=== PATIENT | female | born 1945 | race Caucasian/White ===

== ENCOUNTER 2020-03-25 12:18 | Outpatient (CLI) | payer MEDICARE, SELFPAY ==
--- NOTE | ~2020-03-25 | DEXA_ITS ---
BMD(1) Young-Adult(2) Age-Matched(3) Region (g/cm2) T-score Z-score WHO Classification L1 1.122 -0.2 1.0 Normal L2 1.379 1.4 2.5 Normal L3 1.597 3.0 4.2 Normal L4 1.193 -0.2 0.9 Normal L1-L4 1.312 0.9 2.1 Normal Trend: L1-L4 Change vs Change vs Measured Age BMD(1) Baseline Previous Date (years) (g/cm2) (%) (%) 03/25/2020 [age] 1.312 baseline - 1 - Statistically 68% of repeat scans fall within 1SD (+- 0.010 g/cm2 for AP Spine L1-L4) 2 - [place] (Combined [employer]ANES (ages 20-30) / [employer] (ages 20-40)) AP Spine Reference Population (v112) 3 - Matched for Age, Weight (females 25-100 kg), Ethnic 11 - World Health Organization - Definition of Osteoporosis and Osteopenia for Women: Normal = T-score at or above -1.0 SD; Osteopenia = T-score between -1.0 and -2.5 SD; Osteoporosis = T-score at or below -2.5 SD; (WHO definitions only apply when a young healthy Women reference database is used to determine T-scores.) Printed: 03/25/2020 12:58:52 PM (13.60)76:3.00:50.00:12.0 0.00:9.84 0.60x1.05 25.4:%Fat=38.7% 0.00:0.00 0.00:0.00 Filename: [id number] Scan Mode: Standard;OneScan 37.0 [employer] [id number] BMD(1) Young-Adult(2,7) Age-Matched(3) Region (g/cm2) T-score Z-score WHO Classification Neck Left 0.846 -1.4 0.2 Osteopenia Right 0.830 -1.5 0.1 Osteopenia Mean 0.838 -1.4 0.1 Osteopenia Difference 0.016 0.1 0.1 - Total Left 0.924 -0.7 0.7 Normal Right 0.842 -1.3 0.0 Osteopenia Mean 0.883 -1.0 0.4 Normal Difference 0.082 0.7 0.7 - Hip Spicer Length Comparison (mm) (Right = 115.3 mm) (Mean = 108.0 mm) (Left = 116.7 mm) Trend: Total Mean Change vs Change vs Measured Age BMD(1) Baseline Previous Date (years) (g/cm2) (%) (%) 03/25/2020 75.1 0.883 baseline - 1 - Statistically 68% of repeat scans fall within 1SD (+- 0.010 g/cm2 for DualFemur Total) 2 - [place] (Combined [employer]ANES (ages 20-30) / [employer] (ages 20-40)) Femur Reference Population (v112) 3 - Matched for Age, Weight (females 25-100 kg), Ethnic 7 - [employer]em[employer] Total T-score difference is 0.7. Asymmetry is Mild. 11 - World Health Organization - Definition of Osteoporosis and Osteopenia for Women: Normal = T-score at or above -1.0 SD; Osteopenia = T-score between -1.0 and -2.5 SD; Osteoporosis = T-score at or below -2.5 SD; (WHO definitions only apply when a young healthy Women reference database is used to determine T-scores.) Printed: 03/25/2020 12:58:53 PM (13.60); Filename: [id number]; Right Femur; 19.8:%Fat=32.2%; Neck Angle (deg)= 70; Scan Mode: Standard 37.0 uGy; Left Femur; 19.5:%Fat=38.5%; Neck Angle (deg)= 66; Scan Mode: Standard 37.0 uGy [email or web address] [id number] Dear Kody Mcgrath, Your patient Alicia Villanueva completed a BMD test on 03/25/2020 using the [email or web address] DXA System (analysis version: 13.60) manufactured by [employer]. The following summarizes the results of our evaluation. PATIENT BIOGRAPHICAL: Name: Alicia Villanueva Date: 1945 Height: 66.0 in. Gender: Female Exam Date: 03/25/2020 Weight: 185.0 lbs
== END 2020-03-25 12:19 | disposition home or self-care (01) ==
LOC: CHSIMG 12:20
PROVIDERS: PCP Family Medicine; Visit Provider Family Medicine
DX: M85.80 Other specified disorders of bone density and structure, unspecified site (principal); Z78.0 Asymptomatic menopausal state
CPT/HCPCS: 77080

== ENCOUNTER 2024-03-10 01:41 | Day surgery (SDC) | payer MEDICARE, SELFPAY ==
[2024-02-25 12:51] VITALS: BMI 29.5
[2024-03-10 09:37] VITALS: BP 149/78; PULSE 78; RESP 16; TEMP 36.1; O2SAT 97
[2024-03-10] MEDS: LACTATED RINGERS 1,000 ML 150 ML IV CONT (09:45)
--- NOTE | 2024-03-10 09:52 | WPDANESEPPF ---
Anes - Initial Pre Proc Eval Procedure: Operation Date: 03/10/24 13:30 Proposed Procedures p Colonoscopy - Thomas Pineda MD Date/Time: 03/10/24 09:52 Surgeon: Thomas Pineda MD Pre Op Diagnosis: Other fecal abnormalities Patient Data Age: 79 Gender: F Height: 1.68 m Weight: 81.4 kg Last Vital Signs Temp 96.9 F L 03/10/24 09:37 Pulse 78 03/10/24 09:37 Resp 16 03/10/24 09:37 BP 149/78 H 03/10/24 09:37 Pulse Ox 97 03/10/24 09:37 O2 Del Method Room Air 03/10/24 09:37 Allergies Allergy/AdvReac Type Severity Reaction Status Date / Time No Known Allergies Allergy Verified 03/10/24 09:34 Home Medications Medication Instructions Recorded Confirmed Type acetaminophen 650 mg/20.3 mL oral 650 mg PO Q6H PRN Headache 03/29/23 03/10/24 History solution atorvastatin 80 mg tablet 80 mg PO DAILY 03/29/23 03/10/24 History cholecalciferol (vitamin D3) 50 50 mcg PO DAILY 03/29/23 03/10/24 History mcg (2,000 unit) capsule ergocalciferol (vitamin D2) 1,250 1,250 mcg PO MONTHLY 03/29/23 03/10/24 History mcg (50,000 unit) capsule glucosamine 750 [id number] 1 tablet PO BID 03/29/23 03/10/24 History no1 644 mg-C 30 mg-chito 1 mg tablet (Osteo Bi-Flex Triple Strength) mecobalamin (vitamin B12) 1,000 1,000 mcg sublingual DAILY 03/29/23 03/10/24 History mcg disintegrating tablet,sublingual multivitamin-iron (hematinic) 1 tablet PO DAILY 03/29/23 03/10/24 History ramipril 10 mg capsule 10 mg PO DAILY 03/29/23 03/10/24 History cyclosporine 0.05 % eye drops 1 drp EACH EYE DAILY 02/25/24 03/10/24 History (Restasis MultiDose) Patient hx anesthesia problems: none Family hx anesthesia problems: none Results Review: All pre-operative results and documents have been reviewed as part of the pre-operative evaluation. [facility] Past Medical History Medical History (Updated 03/29/23 @ 10:44 by TOSHIA Lockett) Hyperlipidemia Hypertension Positive colorectal cancer screening using Cologuard test Family History Family History (Updated 03/29/23 @ 10:23 by Renee Felipe MA) Mother Heart disease Cerebrovascular accident Social History Social History (Updated 03/29/23 @ 10:25 by Renee Felipe MA) Smoking packs per day: 1 Smoking cigarettes per day: 20.0 Years smoked: 30 Smoking pack-years: 30.00 Smoking status: Former smoker Tobacco type: cigarettes Second hand tobacco smoke exposure: No Alcohol intake: never Substance use: never Substance use type: does not use Living arrangements: with family Spiritual care concerns: No Anes - Eval Final PreProcedure Day of Procedure 03/10/24 09:52 Patient weight: normal Heart: regular rate and rhythm Lungs: clear to auscultation Airway: Mallampati scale class II Neurological: alert and oriented Last oral intake: >/= 8 hours ASA classification: II Emergent: no Anesthetic plan: proceed Anesthesia type and monitoring: general GIVS and standard monitoring Results Review: All pre-operative results and documents have been reviewed as part of the pre-operative evaluation. Informed Consent: The patient's anesthetic plan and its attendant risks and benefits were discussed with the patient/family/POA. Questions were solicited and answers provided to the satisfaction of the patient/family/POA.
--- NOTE | 2024-03-10 10:02 | PM.HPGS ---
History of Present Illness History of Present Illness Consent: Risks, benefits, and alternatives have been discussed and questions answered. Patient agrees to proceed with procedure. Chief complaint: Other fecal abnormalities Narrative: Alicia Villanueva is a 79 year old female here for first colonoscopy, had + cologuard Review of Systems Review of Systems: All systems reviewed & are unremarkable except as noted in HPI and below PMFSH Past Medical History Medical History (Updated 03/29/23 @ 10:44 by TOSHIA Lockett) Hyperlipidemia Hypertension Positive colorectal cancer screening using Cologuard test Family History Family History (Updated 03/29/23 @ 10:23 by Renee Felipe MA) Mother Heart disease Cerebrovascular accident Social History Social History (Updated 03/29/23 @ 10:25 by Renee Felipe MA) Smoking packs per day: 1 Smoking cigarettes per day: 20.0 Years smoked: 30 Smoking pack-years: 30.00 Smoking status: Former smoker Tobacco type: cigarettes Second hand tobacco smoke exposure: No Alcohol intake: never Substance use: never Substance use type: does not use Living arrangements: with family Spiritual care concerns: No Meds Home Medications and Allergies Home Medications Medication Instructions Recorded Confirmed Type acetaminophen 650 mg/20.3 mL oral 650 mg PO Q6H PRN Headache 03/29/23 03/10/24 History solution atorvastatin 80 mg tablet 80 mg PO DAILY 03/29/23 03/10/24 History cholecalciferol (vitamin D3) 50 50 mcg PO DAILY 03/29/23 03/10/24 History mcg (2,000 unit) capsule ergocalciferol (vitamin D2) 1,250 1,250 mcg PO MONTHLY 03/29/23 03/10/24 History mcg (50,000 unit) capsule glucosamine 750 [id number] 1 tablet PO BID 03/29/23 03/10/24 History no1 644 mg-C 30 mg-chito 1 mg tablet (Osteo Bi-Flex Triple Strength) mecobalamin (vitamin B12) 1,000 1,000 mcg sublingual DAILY 03/29/23 03/10/24 History mcg disintegrating tablet,sublingual multivitamin-iron (hematinic) 1 tablet PO DAILY 03/29/23 03/10/24 History ramipril 10 mg capsule 10 mg PO DAILY 03/29/23 03/10/24 History cyclosporine 0.05 % eye drops 1 drp EACH EYE DAILY 02/25/24 03/10/24 History (Restasis MultiDose) Allergies Allergy/AdvReac Type Severity Reaction Status Date / Time No Known Allergies Allergy Verified 03/10/24 09:34 Vital Signs Vital Signs - 24 hr 03/10/24 09:37 Temperature 96.9 F L Pulse Rate 78 Respiratory Rate 16 Blood Pressure 149/78 H Pulse Oximetry 97 Oxygen Delivery Room Air Exam Const: General: comfortable and no acute distress HENMT: Face/Nose/Sinus: Normal nares present Eyes: General: appearance normal, both eyes and all related structures Neck: Neck: no JVD Resp: Auscultation: clear to auscultation bilaterally Cardio: Rate: regular rate Rhythm: regular rhythm GI: Inspection: non-distended GI Palp: Yes Soft to palpation Skin: General skin exam: normal color Neuro: General: gait normal Speech: normal speech Extrem: General: normal to inspection Psych: Mental Status: mental status grossly normal Assessment and Plan Assessment and plan (1) Positive colorectal cancer screening using Cologuard test: Code(s): R19.5 - Other fecal abnormalities Status: Acute Assessment and Plan: colonoscopy
[2024-03-10 10:21] VITALS: BP 129/70; PULSE 67; RESP 23; O2SAT 100
[2024-03-10 10:31] VITALS: BP 153/79; PULSE 71; RESP 22; O2SAT 99
[2024-03-10 10:41] VITALS: BP 158/94; PULSE 71; RESP 24; O2SAT 96
== END 2024-03-10 10:53 | disposition home or self-care (01) ==
PROVIDERS: PCP Family Medicine; Visit Provider Internal Medicine Gastroenterology
PROC: 0DJD8ZZ Inspection of Lower Intestinal Tract, Via Natural or Artificial Opening Endoscopic (ICD-10-PCS; CPT 45378; principal; 2024-03-10 13:30)
DX: D12.3 Benign neoplasm of transverse colon (principal); D12.5 Benign neoplasm of sigmoid colon; K64.8 Other hemorrhoids; K57.30 Diverticulosis of large intestine without perforation or abscess without bleeding; I10 Essential (primary) hypertension; E78.5 Hyperlipidemia, unspecified; Z87.891 Personal history of nicotine dependence; Z82.49 Family history of ischemic heart disease and other diseases of the circulatory system
CPT/HCPCS: 45385; 88305; J2704; J7120